=== PATIENT | female | born 1960 | race Caucasian/White ===

== ENCOUNTER 2023-12-23 05:30 | Day surgery (SDC) | payer BC ==
[2023-12-23] MEDS: Ringers Lactate 1,000 ML IV ONE (06:15)
[2023-12-23] MEDS: CEFAZOLIN SODIUM 1 GM/VIAL ONE ×3 (06:43→07:55)
[2023-12-23] MEDS ORDERED: FENTANYL CITR 100 MCG/2 ML ONE (06:59)
[2023-12-23] MEDS ORDERED: dexAMETHasone 4 MG/ML VIAL ONE (06:59)
[2023-12-23] MEDS ORDERED: EPINEPHRINE 1 MG/ML VIAL ONE (06:59)
[2023-12-23] MEDS ORDERED: MIDAZOLAM HCL 2 MG/2 ML INJ ONE (07:00)
[2023-12-23] MEDS ORDERED: LIDOCAINE 1% MPF 5 ML VIAL ONE ×2 (07:01→07:19)
[2023-12-23] MEDS ORDERED: ONDANSETRON 4 MG/2 ML VIAL ONE (07:19)
[2023-12-23] MEDS ORDERED: propofoL 200 MG/20 ML VIAL IV ONE (07:19)
[2023-12-23] MEDS ORDERED: LIDOCAINE 1% 20 ML MDV ONE (07:25)
[2023-12-23] MEDS ORDERED: GLYCOPYRROLATE 0.2 MG/ML SYR ONE (08:06)
[2023-12-23] MEDS: BUPIVACAINE 0.5% PF 10 ML VIAL ONE (08:40)
[2023-12-23] MEDS: dexAMETHasone 10 MG/ML VIAL ONE (08:41)
--- NOTE | 2023-12-23 10:39 | RAD REPORT ---
EXAM DESCRIPTION: RAD - Fluoroscopy <1 Hour - 12/23/2023 9:40 am CLINICAL HISTORY: RIGHT HEEL SPUR REMOVAL COMPARISON: No comparisons FINDINGS/IMPRESSION: One 4 intraoperative fluoroscopic images were submitted showing resection of a calcaneal spur. No radiologist was available for the procedure, nor will any image interpretation be provided. Susan danielson refer to the procedural report for additional details Fluoro time: 32.5 seconds Cumulative dose: 0.69 mGy
[2023-12-23 11:22] VITALS: BP 161/97; TEMP 97; O2SAT 97
== END 2023-12-23 11:05 | disposition home or self-care (01) ==
LOC: OR 05:30
PROVIDERS: ATTEND Podiatrist Foot & Ankle Surgery
PROC: 0QBL0ZZ Excision of Right Tarsal, Open Approach (ICD-10-PCS; 2023-12-23)
PROC: 0J8Q0ZZ Division of Right Foot Subcutaneous Tissue and Fascia, Open Approach (ICD-10-PCS; principal; 2023-12-23 07:30)
DX: M72.2 Plantar fascial fibromatosis (principal); M89.9 Disorder of bone, unspecified; M77.31 Calcaneal spur, right foot; I10 Essential (primary) hypertension; E66.9 Obesity, unspecified; E03.9 Hypothyroidism, unspecified; F17.210 Nicotine dependence, cigarettes, uncomplicated; I50.9 Heart failure, unspecified; Z68.32 Body mass index [BMI] 32.0-32.9, adult
CPT/HCPCS: 76000; 28060; 28119; J2704; J1100 ×2; J2001 ×2; J2250; J3010; J0171; J2405; J7120; J0690 ×3